=== PATIENT | male | born 1995 | race Asian ===

== ENCOUNTER 2018-04-17 11:34 | Emergency (ER) | payer MEDICAID ==
[~2018-04-17] VITALS: Ht 160 cm; Wt 72.6 kg
[2018-04-17 11:51] VITALS: BP 143/93
[2018-04-17] MEDS ORDERED: Mylanta II UD 30ml ORAL ONE (12:00)
[2018-04-17] MEDS ORDERED: Lidocaine 2% Visc 15ml soln ORAL ONE (12:00)
[2018-04-17 12:29] LABS: APPEARANCE,URINE CLEAR; BILIRUBIN, URINE NEGATIVE (NEGATIVE); GLUCOSE, URINE (UA) NEGATIVE (NEGATIVE); KETONES,URINE 4+ (NEGATIVE); LEUKOCYTE ESTERASE ,URINE 1+ (NEGATIVE); NITRITE,URINE NEGATIVE (NEGATIVE); PH,URINE 6 (4.5-8.0); PROTEIN,URINE 1+ (NEGATIVE); UROBILINOGEN,URINE 1 MG/DL (0.0-1.0)
[2018-04-17 12:31] LABS: BASOPHILS % (AUTO) 0.9 % (0.0-2.0); EOSINOPHILS % (AUTO) 0.3 % (0.0-3.0); HEMATOCRIT 49.6 % (42.0-52.0); HEMOGLOBIN 16.5 G/DL (14.2-18.0); LYMPHOCYTES % (AUTO) 24.4 % (20.0-45.0); MEAN CORPUSCULAR VOLUME 88 FL (80-99); MONOCYTES % (AUTO) 8.7 % (1.0-10.0); NEUTROPHILS % (AUTO) 65.7 % (45.0-75.0); PLATELET COUNT 300 K/UL (150-450); RED BLOOD COUNT 5.62 M/UL (4.70-6.10)
[2018-04-17 12:40] LABS: COLOR,URINE YELLOW
[2018-04-17 12:58] LABS: ALANINE AMINOTRANSFERASE 30 U/L (12-78); ALBUMIN 4.6 G/DL (3.4-5.0); ALBUMIN/GLOBULIN RATIO 1.1 (1.0-2.7); ALKALINE PHOSPHATASE 78 U/L (46-116); ANION GAP 12 mmol/L (5-15); ASPARTATE AMINO TRANSFERASE 21 U/L (15-37); BILIRUBIN,TOTAL 0.6 MG/DL (0.2-1.0); BLOOD UREA NITROGEN 13 mg/dL (7-18); CALCIUM 9.7 MG/DL (8.5-10.1); CARBON DIOXIDE 26 MMOL/L (21-32); CHLORIDE 101 MMOL/L (98-107); CREATININE 0.9 MG/DL (0.55-1.30); POTASSIUM 3.4 MMOL/L (3.5-5.1); SODIUM 139 MMOL/L (136-145)
--- NOTE | 2018-04-17 13:40 | Emergency Room Report ---
History of Present Illness General Chief Complaint: Abdominal Pain Source: Patient Present Illness HPI Patient states that he has had issues with acid reflux and heartburn intermittently for several months. He states over the past 2 weeks he has had ongoing intermittent symptoms and loss of appetite. He denies pain at this time. However, he states earlier this morning he was feeling the symptoms. He states his symptoms are worse at night. He states he stays up late and plays video games and then around 2 AM we'll try to go to sleep and then has acid reflux and cannot get to sleep until 4 AM in the morning. He admits to using marijuana twice daily for many years. He also does drink alcohol although has not drank in one week. He denies other drugs. He denies chest pain or shortness of breath. He he does have nausea but no vomiting. He denies fever or chills. He has no other complaints. Allergies: Coded Allergies: No Known Allergies (Unverified , 04/17/18) Patient History Past Medical History: none Past Surgical History: none Social History: Reports: alcohol use, drug use; Denies: smoking Reviewed Nursing Documentation: PMH: Agreed; PSxH: Agreed Nursing Documentation-PMH Past Medical History: No Stated History Review of Systems All Other Systems: negative except mentioned in HPI Physical Exam Vital Signs Date Time Temp Pulse Resp B/P (MAP) Pulse Ox O2 Delivery O2 Flow Rate FiO2 04/17/18 11:44 98.2 86 18 135/82 97 Room Air 98.2 Sp02 EP Interpretation: reviewed, normal General Appearance: no apparent distress, alert, GCS 15, non-toxic Head: normocephalic, atraumatic Eyes: bilateral eye normal inspection, bilateral eye PERRL ENT: hearing grossly normal, normal pharynx, no angioedema, normal voice Neck: full range of motion, supple/symm/no masses Respiratory: chest non-tender, lungs clear, normal breath sounds, no respiratory distress, no retraction, no accessory muscle use, speaking full sentences Cardiovascular #1: regular rate, rhythm, no edema Gastrointestinal: normal bowel sounds, non tender, soft, non-distended, no guarding, no rebound Rectal: deferred Musculoskeletal: back normal, gait/station normal, normal range of motion, non- tender Neurologic: alert, oriented x3, responsive, motor strength/tone normal, sensory intact, speech normal Psychiatric: judgement/insight normal, memory normal, mood/affect normal, no suicidal/homicidal ideation Skin: normal color, no rash, warm/dry, well hydrated Medical Decision Making Diagnostic Impression: Primary Impression: Gastritis ER Course This patient has a clinical presentation consistent with gastritis. The location of the pain and history and physical examination is consistent with this. I considered other concerning differentials, to include appendicitis, cholelithiasis, cholecystitis, pancreatitis, perforated viscus, aortic aneurysm , and pyelonephritis to name a few. However, laboratory workup in combination with medical and surgical history and physical exam makes these unlikely at this time. I did educate the patient on close return precautions and followup instructions. Laboratory Tests Test 04/17/18 12:07 04/17/18 12:10 White Blood Count 8.0 K/UL (4.8-10.8) Red Blood Count 5.62 M/UL (4.70-6.10) Hemoglobin 16.5 G/DL (14.2-18.0) Hematocrit 49.6 % (42.0-52.0) Mean Corpuscular Volume 88 FL (80-99) Mean Corpuscular Hemoglobin 29.4 PG (27.0-31.0) Mean Corpuscular Hemoglobin Concent 33.3 G/DL (32.0-36.0) Red Cell Distribution Width 11.0 % (11.6-14.8) L Platelet Count 300 K/UL (150-450) Mean Platelet Volume 6.3 FL (6.5-10.1) L Neutrophils (%) (Auto) 65.7 % (45.0-75.0) Lymphocytes (%) (Auto) 24.4 % (20.0-45.0) Monocytes (%) (Auto) 8.7 % (1.0-10.0) Eosinophils (%) (Auto) 0.3 % (0.0-3.0) Basophils (%) (Auto) 0.9 % (0.0-2.0) Sodium Level 139 MMOL/L (136-145) Potassium Level 3.4 MMOL/L (3.5-5.1) L Chloride Level 101 MMOL/L (98-107) Carbon Dioxide Level 26 MMOL/L (21-32) Anion Gap 12 mmol/L (5-15) Blood Urea Nitrogen 13 mg/dL (7-18) Creatinine 0.9 MG/DL (0.55-1.30) Estimate Glomerular Filtration Rate > 60 mL/min (>60) Glucose Level 99 MG/DL (74-106) Calcium Level 9.7 MG/DL (8.5-10.1) Total Bilirubin 0.6 MG/DL (0.2-1.0) Aspartate Amino Transferase (AST) 21 U/L (15-37) Alanine Aminotransferase (ALT) 30 U/L (12-78) Alkaline Phosphatase 78 U/L (46-116) Total Protein 8.6 G/DL (6.4-8.2) H Albumin 4.6 G/DL (3.4-5.0) Globulin 4.0 g/dL Albumin/Globulin Ratio 1.1 (1.0-2.7) Lipase 103 U/L (73-393) Urine Color Yellow Urine Appearance Clear Urine pH 6 (4.5-8.0) Urine Specific [place] 1.025 (1.005-1.035) Urine Protein 1+ (NEGATIVE) H Urine Glucose (UA) Negative (NEGATIVE) Urine Ketones 4+ (NEGATIVE) H Urine Blood Negative (NEGATIVE) Urine Nitrite Negative (NEGATIVE) Urine Bilirubin Negative (NEGATIVE) Urine Urobilinogen 1 MG/DL (0.0-1.0) H Urine Leukocyte Esterase 1+ (NEGATIVE) H Urine RBC 0 /HPF (0 - 0) Urine WBC 2-4 /HPF (0 - 0) Urine Squamous Epithelial Cells Occasional /LPF Urine Bacteria Occasional /HPF (NONE) Urine Mucus Moderate /LPF (NONE/OCC) H Last Vital Signs Date Time Temp Pulse Resp B/P (MAP) Pulse Ox O2 Delivery O2 Flow Rate FiO2 04/17/18 11:51 98.5 85 21 143/93 100 Room Air 98.5 Status: improved Disposition: HOME, SELF-CARE Condition: Improved Scripts No Active Prescriptions or Reported Meds Referrals: NOT CHOSEN IPA/,REFERRING (PCP) Domenica Brady DO Apr 17, 2018 13:40
[2018-04-17] MEDS ORDERED: RANITIDINE HCL150 MG ORAL (13:42)
[2018-04-17] MEDS ORDERED: MAALOX MAXIMUM355 M1 PO (13:42)
[2018-04-17] MEDS ORDERED: NEXIUM40 MG ORAL (13:42)
[2018-04-17 13:57] VITALS: BP 113/86
== END 2018-04-17 13:59 | disposition home or self-care (01) ==
LOC: EMR 12:00
DX: K29.70 Gastritis, unspecified, without bleeding (principal)
CPT/HCPCS: 36415; 80053; 81003; 83690; 85025; 96361; 96374; 99284; S0028

== ENCOUNTER 2020-02-03 11:21 | Emergency (ER) | payer MEDICAID ==
[~2020-02-03] VITALS: Ht 162.6 cm; Wt 76.2 kg
[~2020-02-03 11:21] MED LIST: MAALOX MAXIMUM355 M1 PO; NEXIUM40 MG ORAL; RANITIDINE HCL150 MG ORAL
[2020-02-03 11:30] VITALS: BP 141/88
--- NOTE | 2020-02-03 11:30 | NUR ---
ED Nurse Note: Pt walked in from home c/o abdominal pain with n/v x 4 days. Per pt, he is not tolerating food or water, vomits immediately. Respirations even and unlabored on room air. Vitals stable as documented.
[2020-02-03] MEDS ORDERED: Haloperidol Lactate 5 MG in D5W 55 ML IVPB ONE (11:45)
[2020-02-03] MEDS ORDERED: DiphenhydrAMINE 50mg/ml Inj IVP ONE (11:45)
[2020-02-03 12:04] LABS: BASOPHILS % (AUTO) 0.6 % (0.0-2.0); EOSINOPHILS % (AUTO) 0.2 % (0.0-3.0); HEMATOCRIT 49.9 % (42.0-52.0); HEMOGLOBIN 16.1 G/DL (14.2-18.0); LYMPHOCYTES % (AUTO) 18.5 % (20.0-45.0); MEAN CORPUSCULAR VOLUME 93 FL (80-99); MONOCYTES % (AUTO) 6.3 % (1.0-10.0); NEUTROPHILS % (AUTO) 74.4 % (45.0-75.0); PLATELET COUNT 276 K/UL (150-450); RED BLOOD COUNT 5.37 M/UL (4.70-6.10); WHITE BLOOD COUNT 6.2 K/UL (4.8-10.8)
[2020-02-03 12:06] LABS: APPEARANCE,URINE CLEAR; BILIRUBIN, URINE NEGATIVE (NEGATIVE); GLUCOSE, URINE (UA) NEGATIVE (NEGATIVE); KETONES,URINE 4+ (NEGATIVE); LEUKOCYTE ESTERASE ,URINE NEGATIVE (NEGATIVE); NITRITE,URINE NEGATIVE (NEGATIVE); PH,URINE 7 (4.5-8.0); PROTEIN,URINE 2+ (NEGATIVE); UROBILINOGEN,URINE 4 MG/DL (0.0-1.0)
[2020-02-03 12:07] LABS: COLOR,URINE YELLOW
[2020-02-03 12:11] LABS: ANION GAP 10 mmol/L (5-15); BLOOD UREA NITROGEN 10 mg/dL (7-18); CARBON DIOXIDE 28 MMOL/L (21-32); CHLORIDE 102 MMOL/L (98-107); POTASSIUM 3.1 MMOL/L (3.5-5.1); SODIUM 140 MMOL/L (136-145)
[2020-02-03 12:16] LABS: ALANINE AMINOTRANSFERASE 21 U/L (12-78); ALBUMIN 4.4 G/DL (3.4-5.0); ALBUMIN/GLOBULIN RATIO 1.3 (1.0-2.7); ALKALINE PHOSPHATASE 57 U/L (46-116); ASPARTATE AMINO TRANSFERASE 22 U/L (15-37); BILIRUBIN,TOTAL 0.8 MG/DL (0.2-1.0)
[2020-02-03 13:30] VITALS: BP 142/84
[2020-02-03] MEDS ORDERED: ONDANSETRON ODT4 MG BC (14:40)
[2020-02-03] MEDS ORDERED: FAMOTIDINE20 MG ORAL (14:40)
--- NOTE | 2020-02-03 14:48 | Emergency Room Report ---
History of Present Illness General Chief Complaint: Abdominal Pain Present Illness HPI This is a 24-year-old male who presents after increased nausea and vomiting. Reports having multiple episodes of vomiting after recent episodes of alcohol intake. He states he normally smokes marijuana daily but does not smoke since Tuesday. Had multiple episodes of nonbloody emesis. Denies any localized pain. Had not had any marijuana since Tuesday. Denies any fever. Denies any cough. 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 Patient History Past Medical History: see triage record Reviewed Nursing Documentation: PMH: Agreed; PSxH: Agreed Nursing Documentation-PMH Hx Gastrointestinal Problems: Yes - gastritis, GERD Review of Systems All Other Systems: negative except mentioned in HPI Physical Exam Vital Signs Date Time Temp Pulse Resp B/P (MAP) Pulse Ox O2 Delivery O2 Flow Rate FiO2 02/03/20 11:26 98.8 95 16 149/93 (111) 97 Room Air Sp02 EP Interpretation: reviewed, normal General Appearance: normal inspection, well appearing, no apparent distress, alert, GCS 15 Head: atraumatic ENT: normal ENT inspection, hearing grossly normal, normal voice Neck: normal inspection, full range of motion, supple, no bony tend Respiratory: normal inspection, lungs clear, normal breath sounds, no respiratory distress, no retraction, no wheezing Cardiovascular #1: regular rate, rhythm, no edema Gastrointestinal: normal inspection, normal bowel sounds, non tender, soft, no guarding, no hernia Genitourinary: no CVA tenderness Musculoskeletal: normal inspection, back normal, normal range of motion Neurologic: alert, motor strength/tone normal, editorial cartoonist III-XII nml as tested, oriented x3, responsive, speech normal, normal inspection Psychiatric: normal inspection, judgement/insight normal, mood/affect normal Medical Decision Making Diagnostic Impression: Primary Impression: Gastritis ER Course Patient presented for abdominal pain. Differential diagnosis include was not limited to gastritis, ulcer, diabetic ketoacidosis, marijuana hyperemesis, obstruction among others. Because of complexity of patient's case laboratory tests and imaging studies were ordered. Patient was noted to have some initial nausea and vomiting. He was given IV fluids as well as medications for nausea with improvement. He reports having normal appetite. Exam is unremarkable and patient has no focal tenderness. Patient appears to be stable for outpatient management and had market improvement after IV hydration. Patient was advised to return if he had a worsening of condition or other concerns. The patient is advised to follow up with primary care doctor in 1-2 days. Patient is advised to return if any worsening condition or if any changes in status that are concerning. This report is dictated with [employer] torch burner software which may occasionally lead to discrepancies related to use of this software. Labs Test 02/03/20 11:34 02/03/20 11:40 Urine Color Yellow Urine Appearance Clear Urine pH 7 (4.5-8.0) Urine Specific [place] 1.015 (1.005-1.035) Urine Protein 2+ (NEGATIVE) Urine Glucose (UA) Negative (NEGATIVE) Urine Ketones 4+ (NEGATIVE) Urine Blood Negative (NEGATIVE) Urine Nitrite Negative (NEGATIVE) Urine Bilirubin Negative (NEGATIVE) Urine Urobilinogen 4 MG/DL (0.0-1.0) Urine Leukocyte Esterase Negative (NEGATIVE) Urine RBC 0 /HPF (0 - 0) Urine WBC 0-2 /HPF (0 - 0) Urine Squamous Epithelial Cells Occasional /LPF Urine Bacteria Occasional /HPF (NONE) Urine Mucus Few /LPF (NONE/OCC) White Blood Count 6.2 K/UL (4.8-10.8) Red Blood Count 5.37 M/UL (4.70-6.10) Hemoglobin 16.1 G/DL (14.2-18.0) Hematocrit 49.9 % (42.0-52.0) Mean Corpuscular Volume 93 FL (80-99) Mean Corpuscular Hemoglobin 29.9 PG (27.0-31.0) Mean Corpuscular Hemoglobin Concent 32.2 G/DL (32.0-36.0) Red Cell Distribution Width 12.0 % (11.6-14.8) Platelet Count 276 K/UL (150-450) Mean Platelet Volume 6.9 FL (6.5-10.1) Neutrophils (%) (Auto) 74.4 % (45.0-75.0) Lymphocytes (%) (Auto) 18.5 % (20.0-45.0) Monocytes (%) (Auto) 6.3 % (1.0-10.0) Eosinophils (%) (Auto) 0.2 % (0.0-3.0) Basophils (%) (Auto) 0.6 % (0.0-2.0) Sodium Level 140 MMOL/L (136-145) Potassium Level 3.1 MMOL/L (3.5-5.1) Chloride Level 102 MMOL/L (98-107) Carbon Dioxide Level 28 MMOL/L (21-32) Anion Gap 10 mmol/L (5-15) Blood Urea Nitrogen 10 mg/dL (7-18) Creatinine 1.0 MG/DL (0.55-1.30) Estimat Glomerular Filtration Rate > 60 mL/min (>60) Glucose Level 102 MG/DL (74-106) Calcium Level 9.0 MG/DL (8.5-10.1) Total Bilirubin 0.8 MG/DL (0.2-1.0) Aspartate Amino Transf (AST/SGOT) 22 U/L (15-37) Alanine Aminotransferase (ALT/SGPT) 21 U/L (12-78) Alkaline Phosphatase 57 U/L (46-116) Total Protein 7.9 G/DL (6.4-8.2) Albumin 4.4 G/DL (3.4-5.0) Globulin 3.5 g/dL Albumin/Globulin Ratio 1.3 (1.0-2.7) Lipase 95 U/L (73-393) Last Vital Signs Date Time Temp Pulse Resp B/P (MAP) Pulse Ox O2 Delivery O2 Flow Rate FiO2 02/03/20 13:30 98.2 88 16 142/84 98 Room Air Status: improved Disposition: HOME, SELF-CARE Condition: Stable Scripts Ondansetron Odt* (ZOFRAN ODT*) 4 Mg Tab.rapdis 4 MG BC EVERY 6 HOURS PRN for Nausea & Vomiting, #10 TAB 0 Refills Prov: Renard Watkins MD 02/03/20 Famotidine* (Pepcid 20mg tablet*) 20 Mg Tablet 20 MG ORAL DAILY, #30 TAB 0 Refills Prov: Renard Watkins MD 02/03/20 Patient Instructions: Abdominal Pain, Adult Renard Watkins MD Feb 03, 2020 14:48
[2020-02-03 14:58] VITALS: BP 131/72
--- NOTE | 2020-02-03 14:58 | NUR ---
ER DISCHARGE NOTE: Pt tolerating PO fluids. Patient is cleared to be discharged per ERMD, pt is aox4, on room air, with stable vital signs. pt was given dc and prescription instructions, pt was able to verbalize understanding, pt id band and iv site removed without complications. pt is able to ambulate with steady gait. pt took all belongings.
== END 2020-02-03 14:58 | disposition home or self-care (01) ==
LOC: EMR 11:45
DX: K29.70 Gastritis, unspecified, without bleeding (principal); K21.9 Gastro-esophageal reflux disease without esophagitis
CPT/HCPCS: 36415; 80053; 81003; 83690; 85025; 96374; 96375; J1200; J1630; S0028; Z7502; 99284; J8499